=== PATIENT | male | born 1945 | race Caucasian/White ===

== ENCOUNTER 2018-12-11 11:43 | Emergency (ER) | payer MEDICARE, BC ==
[~2018-12-11] VITALS: Ht 172.7 cm; Wt 83.1 kg
[2018-12-11 11:47] VITALS: BP 168/85
--- NOTE | 2018-12-11 12:35 | NUR ---
DR BURROUGHS AT BEDSIDE. PT SENT FROM [facility]RGENT [facility]ARE FOR ADDITIONAL EVALUATION BY [facility]. PT RPTS WAKING DURING THE NIGHT WITH PAIN AT THE STERNAL NOTCH AND RIGHT SCAPULAR PAIN. PT RPTS THAT HE USES A ACCOUNT RECEIVABLE ASSOCIATE FREQUENTLY TO BREAKDOWN CARDBOARD BOXES AND HE HAS BEEN HAVING THIS TYPE OF PAIN FOR A FEW WEEKS. PT RATES HIS SCAPULAR PAIN 2/10 AND DENIES STERNAL NOTCH PAIN AT THIS TIME.
--- NOTE | 2018-12-11 12:48 | NUR ---
DR BURROUGHS AT BEDSIDE POC DISCUSSED WITH PT AND QUESTIONS ANSWERED. PT ELECTS TO LEAVE AMA. PT SIGNED AMA FORM. I ENCOURAGED PT TO RTN TO THE EMERGENCY DEPT IF SYMPTOMS WORSEN.
[2018-12-11] MEDS ORDERED: ASPIRIN 81 MG TABLET CHEW PO ONE (13:00)
== END 2018-12-11 12:53 | disposition left against medical advice (07) ==
LOC: ED 12:44
DX: R07.2 Precordial pain (principal); I10 Essential (primary) hypertension; Z86.73 Personal history of transient ischemic attack (TIA), and cerebral infarction without residual deficits
CPT/HCPCS: 93005; 99283